=== PATIENT | male | born 2000 | race Hispanic/Latino ===

== ENCOUNTER 2019-05-09 23:35 | Emergency (ER) | payer SELFPAY ==
[2019-05-09] MEDS ORDERED: DiphenhydrAMINE HCL 50 MG/ML VIAL ONE (23:56)
[2019-05-09] MEDS ORDERED: ORPHENADRINE CITRATE 30 MG/ML ML ONE (23:57)
[2019-05-09] MEDS ORDERED: KETOROLAC TROMETHAMINE 60 MG/2 ML VIAL ONE (23:57)
== END 2019-05-10 00:44 | disposition home or self-care (01) ==
LOC: EDH 23:35
DX: G24.9 Dystonia, unspecified (principal); Z72.0 Tobacco use; Z88.8 Allergy status to other drugs, medicaments and biological substances
CPT/HCPCS: 96372 ×3; 99284; J1200; J1885; J2360